=== PATIENT | female | born 1995 | race Two or more races ===

== ENCOUNTER 2025-11-19 04:05 | Emergency (ER) | payer BC, SELFPAY ==
[2025-11-19 04:05] VITALS: BMI 24.7
[2025-11-19 04:56] VITALS: BP 113/73; PULSE 81; RESP 18; TEMP 36.9; O2SAT 98
[2025-11-19 04:57] VITALS: BMI 24.7
--- NOTE | 2025-11-19 04:57 | XR_ITS ---
Examination: Abdomen sonogram, Limited Date and time of exam: November 19, 2025, 0511 hours INDICATIONS: Epigastric pain with nausea vomiting diarrhea beginning 2 days ago Technique: Real-time copeland scale transabdominal sonographic images of the upper abdomen obtained. Findings: Normal gallbladder Normal common bile duct 0.4 cm Pancreatic head 1.7 cm Liver 13.3 cm smooth contour Normal hepatopetal portal venous flow Patent IVC IMPRESSION: Normal gallbladder Normal common bile duct
--- NOTE | 2025-11-19 04:58 | PD.EDRME ---
Rapid Medical Screening Exam RME Arrival date/time: 11/19/25 04:05 This is a case of 30-year-old female with no medical history came in in the emergency room due to both upper abdominal pain with nausea vomiting worsening of the symptoms this patient decided to sought consult here in the emergency room Chief Complaint: Abdominal Pain Time Seen by Provider: 11/19/25 04:49 Vital signs: Vital Signs Temperature 98.4 F 11/19/25 04:56 Pulse Rate 81 11/19/25 04:56 Respiratory Rate 18 11/19/25 04:56 Blood Pressure 113/73 11/19/25 04:56 Pulse Oximetry (%) 98 11/19/25 04:56 Oxygen Delivery Method Room Air 11/19/25 04:56 Exam: Mild to moderate tenderness epigastric area no guarding no rebound no rigidity Clinical Impression: Abdominal pain
[2025-11-19 05:11] LABS: Basophils # (Auto) 0.0 Thou/mm3 (0.0-0.2); Basophils % (Auto) 0 % (0-2.5); Eosinophils # (Auto) 0.5 Thou/mm3 (0.0-0.5); Eosinophils % (Auto) 5 % (0-10); Hematocrit 39.2 % (36.0-46.0); Hemoglobin 13.6 g/dL (12.0-16.0); Immature Granulocytes Auto 0.03 Thou/mm3 (0.00-0.00); Lymphocytes # (Auto) 1.8 Thou/mm3 (1.0-4.8); Lymphocytes % (Auto) 19 % (10-50); Mean Corpuscular HGB Conc 34.7 g/dl (31.0-37.0); Mean Corpuscular Hemoglobin 30.8 pg (25.0-35.0); Mean Corpuscular Volume 89 fL (80-100); Monocytes # (Auto) 0.6 Thou/mm3 (0.0-0.8); Monocytes % (Auto) 6 % (0-12); Neutrophils # (Auto) 6.5 Thou/mm3 (1.8-7.7); Neutrophils % (Auto) 69 % (37-80); Nucleated Red Blood Cell # 0.00 Thou/mm3 (0.00-0.00); Nucleated Red Blood Cell % 0 /100 WBC (0); Platelet Count 268 Thou/mm3 (140-440); RDW Standard Deviation 37.9 fL (36.4-46.3); Red Blood Count 4.42 Miln/mm3 (4.00-5.20); White Blood Count 9.5 Thou/mm3 (3.6-11.0)
[2025-11-19 05:24] LABS: Alanine Aminotransferase 13 U/L (10-49); Albumin, Serum 4.8 gm/dL (3.5-5.0); Albumin/Globulin Ratio 1.5 (1.2-2.2); Alkaline Phosphatase 76 U/L (46-116); Anion Gap 11 (7-16); Aspartate Amino Transferase 18 U/L (0-34); BUN/Creatinine Ratio 8 Ratio (12-20); Bilirubin,Total 1.9 mg/dL (0.3-1.2); Blood Urea Nitrogen 6 mg/dL (9-23); Calcium 9.7 mg/dL (8.3-10.6); Calcium (Corrected) 9.7 mg/dL (8.5-10.1); Carbon Dioxide 22.9 mMol/L (20.0-31.0); Chloride 106 mMol/L (98-107); Creatinine (Component) 0.8 mg/dL (0.6-1.3); Estimated Creatinine Clearance 90.2 mL/min (>60); Globulin 3.1 gm/dL (2.3-3.5); Glucose 92 mg/dL (74-106); Lipase 31 U/L (12-53); Osmolality,Calculated 277 (275-295); Potassium 3.9 mMol/L (3.4-5.1); Sodium 140 mMol/L (136-145); Total Protein 7.9 gm/dL (5.7-8.2); eGFR > 60 See Note
--- NOTE | 2025-11-19 06:24 | EDNOTE_ITS ---
ED Abdominal Pain RME/HPI General Chief Complaint: Abdominal Pain Stated complaint: UPPER ABDOMINAL PAIN Time seen by provider: 11/19/25 04:49 Arrival date/time: 11/19/25 04:05 30-year-old female with no known medical history presents to the emergency room with a chief complaint of upper abdominal pain and diarrhea x 2 days Source: patient Mode of arrival: ambulatory Limitations: no limitations RME / HPI RME / HPI narrative: 11/19/25 04:05 This is a case of 30-year-old female with no medical history came in in the emergency room due to both upper abdominal pain with nausea vomiting worsening of the symptoms this patient decided to sought consult here in the emergency room Exam: Mild to moderate tenderness epigastric area no guarding no rebound no rigidity Impression: Abdominal pain Related Data Home Medications ?Medication ?Instructions ?Recorded ?Confirmed FLUTICASONE/SALMETEROL (Advair 1 puff inhalation DAILY ##0 09/04/13 100/50 Diskus) Previous Rx's ?Medication ?Instructions ?Recorded epinephrine 0.15 mg/0.3 mL 0.15 mg (0.3 mL) IM X1 Eladio rgies 09/05/13 injection,auto-injector (EpiPen Jr ##1 2-Earnest) acetaminophen 325 mg capsule 650 mg (2 x 325 mg) PO QI D PRN 11/19/25 fever or pain 7 days #30 caps loperamide 2 mg capsule 2 mg PO Q6H PRN loose stool #14 11/19/25 (Anti-Diarrheal (loperamide)) caps Allergies Allergy/AdvReac Type Severity Reaction Status Date / Time mustard Allergy Severe SWELLS UP Unverified 09/04/13 22:30 peanut Allergy Severe SWELLS UP Unverified 09/04/13 22:30 PEANUT BUTTER Allergy Severe SWELLS UP Uncoded 12/06/09 19:18 NUTS Allergy Uncoded 09/04/13 22:00 Review of Systems Review of Systems Systems Reviewed: All systems reviewed, normal except as documented Constitutional Constitutional: Reports system reviewed and no additional complaints, except as documented, Denies fatigue, Denies fever(s), Denies headache(s) and Denies weakness Eyes Eyes: Reports system reviewed and no additional complaints, except as documented, Denies blurry vision and Denies change in vision ENT Ears, Nose, Mouth, and Throat: Reports system reviewed and no additional complaints, except as documented, Denies otalgia, Denies headache(s), Denies nasal congestion, Denies throat swelling and Denies vertigo Cardiovascular Cardiovascular: Reports system reviewed and no additional complaints, except as documented, Denies chest pain, Denies dyspnea and Denies dyspnea on exertion Respiratory Respiratory: Reports system reviewed and no additional complaints, except as documented, Denies chest congestion, Denies cough, Denies dyspnea, Denies d yspnea on exertion and Denies wheezing Gastrointestinal Gastrointestinal: Reports system reviewed and no additional complaints, except as documented, Reports abdominal pain, Reports cramping, Reports diarrhea, Denies nausea and Denies vomiting Genitourinary Genitourinary: Reports system reviewed and no additional complaints, except as documented Musculoskeletal Musculoskeletal: Reports system reviewed and no additional complaints, except as documented and Denies back pain Integumentary/Breasts Skin/Breast: Reports system reviewed and no additional complaints, except as documented and Denies wounds Neurologic Neurologic: Reports system reviewed and no additional complaints, except as documented, Denies confusion, Denies headache(s), Denies lack of coordination, Denies vertigo and Denies weakness Psychiatric Psychiatric: Reports system reviewed and no additional complaints, except as documented, Denies anxiety, Denies confusion, Denies depression, Denies paranoia, Denies suicidal ideation and Denies tactile hallucinations Endocrine Endocrine: Reports system reviewed and no additional complaints, except as documented and Denies fatigue Hematologic/Lymphatic Hematologic/Lymphatic: Reports system reviewed and no additional complaints, except as documented and Denies lymphadenopathy Allergic/Immunologic Allergic/Immunologic: Reports system reviewed and no additional complaints, except as documented, Denies throat swelling, Denies urticaria and Denies wheezing Past Medical History Social History SMOKING STATUS: Never smoker ED Exam General Limitations: Present no limitations General appearance: Present alert and in no apparent distress Head Head exam: Present atraumatic Eye Eye exam: Present normal appearance, PERRL and EOMI ENT ENT exam: Present normal exam, normal oropharynx and mucous membranes moist Neck Neck exam: Present normal inspection, full ROM and trachea midline Chest Chest inspection: Present normal inspection and symmetric chest wall rise Respiratory Respiratory exam: Present normal lung sounds bilaterally Cardiovascular Cardiovascular exam: Present regular rate, normal rhythm and normal heart sounds Abdominal Exam Abdominal exam: Present soft, tenderness and normal bowel sounds; Absent distention, guarding, rebound, rigidity, Jacob's sign or tenderness at McBurney's Point Abdominal tenderness: Present RUQ, LUQ and mild Extremities Exam Extremities exam: Present normal inspection and full ROM Back Exam Back exam: Present normal inspection and full ROM Neurological Exam Neurological exam: Present alert, oriented X3 and CN II-XII intact Psychiatric Psychiatric exam: Present normal affect and normal mood Skin Skin exam: Present warm, dry, intact and normal color Course Quality Measures none Orders Category Date Time Status US gall bladder Stat Exams 11/19/25 04:57 Taken CBC Stat Lab 11/19/25 05:01 Completed Comprehensive Metabolic Panel Stat Lab 11/19/25 05:01 Completed HCG Qualitative,Urine Stat Lab 11/19/25 04:57 Ordered Lipase Stat Lab 11/19/25 05:01 Completed Urinalysis Stat Lab 11/19/25 04:57 Ordered Vital Signs Vital signs: Vital Signs Temperature 98.4 F 11/19/25 04:56 Pulse Rate 81 11/19/25 04:56 Respiratory Rate 18 11/19/25 04:56 Blood Pressure 113/73 11/19/25 04:56 Pulse Oximetry (%) 98 11/19/25 04:56 Oxygen Delivery Method Room Air 11/19/25 04:56 Abdominal Pain MDM MDM Narrative MDM Narrative:: 30-year-old female with no known medical history presents to the emergency room with a chief complaint of upper abdominal pain and diarrhea x 2 days Patient is hemodynamically stable and in no apparent distress. Patient is afebrile nontachycardic nontachypneic Physical examination shows upper epigastric abdominal pain that radiates to the right upper quadrant x 2 days. Patient denies any vomiting but does have di arrhea. CBC CMP were negative for any acute findings. There is no leukocytosis or any hyperbilirubinemia. An ultrasound of the gallbladder was completed and was negative for any cholelithiasis or cholecystitis Patient was discharged and educated to follow-up with primary care provider in the next 24 to 48 hours and return to the emergency room for any evidence of worsening signs or symptoms Patient data External records reviewed:: [facility] previous records Clinical information provided by:: patient Social determinants that could affect healthcare access:: none Patient has the following chronic illnesses:: No chronic illness How is presenting disease/condition affected by chronic disease/condition?: no chronic disease Evaluation data The following diagnostics were reviewed and interpreted by me:: lab results and radiology exam(s) Lab and/or radiology exams considered but not ordered:: Labs and radiology exams considered and ordered Interpretation Summary: Ultrasound gallbladder-no acute findings Medications / Prescriptions Medications or Prescriptions considered but not ordered:: No medication given Medication administrations:: No medication given Consultations Consultation(s) initiated? (list below): No Diagnosis Differential diagnosis abdominal pain: abdominal pain, gastroenteritis and other (Cholelithiasis/cholecystitis) Most likely diagnosis given after review of the tests above:: Gastroenteritis Admission Indicated Admission indicated?: not indicated Admission Request Was there a request for admission?: No Disposition Plan Disposition Plan: Discharge Discharge Attestation Discharge Attestation: The patient and all family members were given an opportunity to ask questions and understood the discharge instructions. Discharge instructions specifically effects, indications for sooner follow up or return to the emergency department, and the expected course of current diagnosis. Patient condition: Stable Discharge Plan Plan Patient Disposition: HOME (Self Care) Discharge Disposition comment: stable Prescriptions/Referrals Prescriptions/Med Rec: New acetaminophen 325 mg capsule 650 mg PO QID PRN (Reason: fever or pain) 7 Days Qty: 30 0RF loperamide [Anti-Diarrheal (loperamide)] 2 mg capsule 2 mg PO Q6H PRN (Reason: loose stool) Qty: 14 0RF No Action FLUTICASONE/SALMETEROL (Advair 100/50 Diskus) 28 PUFF/14 DOSE PUFF 1 puff Inhalation DAILY Qty: 0 epinephrine [EpiPen Jr 2-Earnest] 0.15 MG/0.3 ML auto-injector 0.15 mg IM X1 Qty: 1 0RF Referrals: Ricky Villegas MD [Primary Care Provider, Family Practice] - In 1 week Problem List Clinical Impression: Gastroenteritis Patient/Caregiver Discharge Instructions Education Materials: Understanding Colitis, ED Gastroenteritis, Noninfectious Additional Instructions: Please follow-up with your primary care provider in the next 24 to 48 hours Your blood work and ultrasound were within normal limits Medication was sent to your pharmacy please pick it up and take it as indicated. For any evidence of worsening signs or symptoms return to the emergency room immediately Print Language: Lithuanian Stand Alone Forms: Jessica Award Info., Work/School Release, Patient Portal Info Letter AMANDEEP/SHAISTA Supervising Physician AMANDEEP/SHAISTA Supervising Physician: Dr. Henning
== END 2025-11-19 08:01 | disposition home or self-care (01) ==
PROVIDERS: Nurse Practitioner Family; Emergency Provider Emergency Medicine; PCP Family Medicine
DX: K52.9 Noninfective gastroenteritis and colitis, unspecified (principal)
CPT/HCPCS: 36415; 76705; 80053; 81001; 81025; 83690; 85025; 99283